=== PATIENT | male | born 2000 | race Caucasian/White ===

== ENCOUNTER 2019-06-23 01:33 | Emergency (ER) | payer SELFPAY ==
[~2019-06-23] VITALS: Ht 175.3 cm; Wt 80.0 kg
[2019-06-23 01:38] VITALS: BP 110/54
--- NOTE | 2019-06-23 01:41 | NUR ---
Pt bib remsa c/o apparent gross etoh intoxication. Pt admits to "drinking all the red bulls and vodka." Pt slurring words and not able to amb steadily. All other neuro appears intact. Pt denies any glf or trauma. [facility] and [facility] stated no evident falls either. Pt is a+ox4, but will not follow all directions. Pt easily redirectable and will follow directions and reorientation. Monitoring applied. Vss. Call light within reach. Pt educated on fall precautions and utilized urinal upon arrival.
--- NOTE | 2019-06-23 02:05 | NUR ---
Pt sleeping comfortably on gurney. Nadn. Rr even and unlabored. Pulse ox remains intact.
--- NOTE | 2019-06-23 02:53 | NUR ---
Pt amb w/ steady gait from room and expressing interest to leave. Given taxi voucher.
== END 2019-06-23 02:57 ==
LOC: ED 02:51
DX: F10.120 Alcohol abuse with intoxication, uncomplicated (principal); R47.81 Slurred speech
CPT/HCPCS: 99283